=== PATIENT | female | born 1945 | race Caucasian/White ===

== ENCOUNTER 2019-02-25 18:45 | Emergency (ER) | payer MEDICARE, OTHER ==
[~2019-02-25] VITALS: Ht 165.1 cm; Wt 113.4 kg
[2019-02-25] MEDS ORDERED: MIDAZOLAM DRIP 50 mg/50mL 50 ML IV SCH (18:51)
[2019-02-25] MEDS ORDERED: SUCCINYLCHOLINE CHLORIDE 20 MG/ML 10ML VIAL IV ONE ×3 (18:52→19:00)
[2019-02-25] MEDS ORDERED: ETOMIDATE (2MG/ML) 20ML VIAL IV ONE ×3 (18:52→19:00)
[2019-02-25] MEDS ORDERED: fentaNYL Drip 2500mCg/250mlNS 250 ML IV SCH (18:53)
[2019-02-25] MEDS ORDERED: NOREPINEPHRINE 8 MG/250ML KIT 250 ML IV SCH (18:53)
[2019-02-25] MEDS ORDERED: MIDAZOLAM DRIP 50 mg/50mL 50 ML IV ONE (18:57)
[2019-02-25] MEDS ORDERED: fentaNYL Drip 2500mCg/250mlNS 250 ML IV ONE (18:57)
[2019-02-25] MEDS ORDERED: PROPOFOL 100 ML IV SCH ×2 (19:22→19:46)
[2019-02-25] MEDS ORDERED: PROPOFOL 100 ML IV ONE (19:22)
[2019-02-25 20:05] VITALS: BP 154/69
[2019-02-25 22:19] LABS: Urine Bacteria NONE SEEN /hpf (None Seen); Urine Blood 1+ /uL (Negative); Urine WBC 1 /hpf (0 - 5)
== END 2019-02-25 20:53 | disposition short-term general hospital (02) ==
LOC: EDBD 18:45 → ER 18:48
DX: I60.9 Nontraumatic subarachnoid hemorrhage, unspecified (principal); G93.41 Metabolic encephalopathy; R06.03 Acute respiratory distress
CPT/HCPCS: 31500; 36600; 70450; 71045; 81001; 82805; 82962; 87070; 87205; 99291; J0330; J2250; J2704; J7030; 94002

== ENCOUNTER 2019-04-10 12:07 | Emergency (ER) | payer OTHER ==
[~2019-04-10] VITALS: Ht 167.6 cm; Wt 93.9 kg
[2019-04-10 12:44] LABS: Basophils # (auto) 0.1 uL; Basophils % (auto) 1.6 % (0.0-2.0); Eosinophils # (auto) 0.3 uL; Eosinophils % (auto) 6.2 % (0.0-7.0); Hematocrit 36.7 % (36.0-46.0); Hemoglobin 11.9 g/dL (12.2-16.2); Lymphocytes # (auto) 0.7 uL; Lymphocytes % (auto) 14.9 % (10.0-50.0); Mean Corpuscular Hemoglobin 28.4 pg (28.0-32.0); Mean Corpuscular Hgb Conc. 32.5 g/dL (32.0-36.0); Mean Corpuscular Volume 87.4 fL (80.0-100.0); Monocytes # (auto) 0.3 uL; Monocytes % (auto) 6.9 % (0.0-12.0); Neutrophils # (auto) 3.3 uL; Neutrophils % (auto) 70.4 % (37.0-80.0); Platelet Count (auto) 126 10^3/uL (140-450); Red Blood Cells 4.21 10^6/uL (4.0-5.20); Red Cell Distribution Width 18.2 % (11.8-14.3); White Blood Cell 4.8 10^3/uL (4.4-10.8)
[2019-04-10 13:05] LABS: Alanine Aminotransferase 32 U/L (13-56); Albumin 3.2 g/dL (3.4-5.0); Anion Gap 6 (5-15); Aspartate Aminotransferase 50 U/L (15-37); BUN/Creatinine Ratio 19.1; Blood Urea Nitrogen 18 mg/dL (7-18); Calcium 8.9 mg/dL (8.5-10.1); Carbon Dioxide 27 mmol/L (21-32); Chloride 108 mmol/L (98-107); GFR African American 75 mL/min; GFR Non-African American 62 mL/min; Glucose 108 mg/dL (74-106); Potassium 3.9 mmol/L (3.5-5.1); Sodium 141 mmol/L (136-145)
[2019-04-10 13:10] LABS: Alkaline Phosphatase 168 U/L (45-117); Bilirubin, Total 0.5 mg/dL (0.2-1.0); Total Protein 7.4 g/dL (6.4-8.2)
[2019-04-10] MEDS ORDERED: cloNIDine HCL 0.1 MG TAB ONE (16:57)
[2019-04-10] MEDS ORDERED: cloNIDine HCL 0.1 MG TAB PO ONE (17:15)
[2019-04-10] MEDS ORDERED: NICARDIPINE 25MG/250ML BAG KIT 250 ML IV SCH (20:22)
[2019-04-10 21:13] VITALS: BP 144/56
[2019-04-10 21:15] LABS: INR 1.23 (0.9-1.15); Partial Thromboplastin Time 27.7 sec (23.64-32.05)
== END 2019-04-10 21:23 | disposition short-term general hospital (02) ==
LOC: ER 12:07
DX: S06.34 Traumatic hemorrhage of right cerebrum (principal); I10 Essential (primary) hypertension; D64.9 Anemia, unspecified; E78.5 Hyperlipidemia, unspecified; W19.XXXD Unspecified fall, subsequent encounter
CPT/HCPCS: 36415; 70450; 71045; 80053; 83735; 84484; 85025; 85610; 85730; 93005; 96365; 99291

== ENCOUNTER 2020-02-10 17:57 | Inpatient (IN) | payer MEDICARE, OTHER ==
[~2020-02-10] VITALS: Ht 160 cm; Wt 76.7 kg
[2020-02-10 19:38] LABS: Basophils # (auto) 0.1 10 ^3/uL (0-0.2); Eosinophils # (auto) 0.1 10 ^3/uL (0-0.8); Eosinophils % (auto) 0.6 % (0.0-7.0); Monocytes # (auto) 1.5 10 ^3/uL (0-1.3)
[2020-02-10 19:40] LABS: Basophils % (auto) 0.7 % (0.0-2.0); Hematocrit 32.8 % (36.0-46.0); Lymphocytes # (auto) 1.5 10 ^3/uL (0.4-5.4); Lymphocytes % (auto) 11.5 % (10.0-50.0); Mean Corpuscular Hemoglobin 34.5 pg (28.0-32.0); Mean Corpuscular Hgb Conc. 33.6 g/dL (32.0-36.0); Mean Corpuscular Volume 102.7 fL (80.0-100.0); Monocytes % (auto) 11.3 % (0.0-12.0); Neutrophils # (auto) 10.2 10 ^3/uL (1.6-8.6); Neutrophils % (auto) 75.9 % (37.0-80.0); Platelet Count (auto) 165 10^3/uL (140-450); Red Blood Cells 3.19 10^6/uL (4.0-5.20); Red Cell Distribution Width 13.2 % (11.8-14.3); White Blood Cell 13.4 10^3/uL (4.4-10.8)
[2020-02-10 19:55] LABS: INR 1.21 (0.9-1.15); Partial Thromboplastin Time 30.2 sec (23.0-31.2)
[2020-02-10 20:04] LABS: Albumin 3.4 g/dL (3.4-5.0); Calcium 9.6 mg/dL (8.5-10.1); Potassium 4.3 mmol/L (3.5-5.1)
[2020-02-10 20:07] LABS: BUN/Creatinine Ratio 30.6
[2020-02-10 20:10] LABS: Bilirubin, Total 0.6 mg/dL (0.2-1.0); Total Protein 7.4 g/dL (6.4-8.2)
[2020-02-11] MEDS ORDERED: ACETAMINOPHEN 325 MG TAB PO PRN (02:45)
[2020-02-11] MEDS ORDERED: SODIUM CHLORIDE 0.9% 500 ML IV ONE (02:45)
[2020-02-11] MEDS ORDERED: ONDANSETRON HCL 4 MG/2 ML VIAL IV PRN (02:45)
[2020-02-11] MEDS: SODIUM CHLORIDE 0.9% 1,000 ML IV SCH ×2 (03:18→20:16)
[2020-02-11 03:54] LABS: Urine Bacteria MANY /hpf (None Seen); Urine Blood 1+ /uL (Negative); Urine Specific Gravity 1.017 (1.001-1.035); Urine WBC 2123 /hpf (0 - 5); Urine WBC Clumps PRESENT /hpf (None Seen)
[2020-02-11 03:58] LABS: Alcohol, Urine < 3.0 mg/dL (0-10); Amphetamine Screen, Urine NEGATIVE (NEGATIVE); Barbiturate Scree,Urine NEGATIVE (NEGATIVE); Benzodiazephine Screen, Urine NEGATIVE (NEGATIVE); Cannabinoid Screen, Urine NEGATIVE (NEGATIVE); Cocaine Screen, Urine NEGATIVE (NEGATIVE); Opiate Scree,Urine NEGATIVE (NEGATIVE); Phencyclidine Screen, Urine NEGATIVE (NEGATIVE)
[2020-02-11 09:00] VITALS: BP 105/53
--- NOTE | 2020-02-11 09:00 | NUR ---
CAME ON [facility] FROM ER, RESPONDS TO PAINFUL STIMULI, NON VERBAL, ON SEIZURE PRECAUTION, NOT IN DISTRESS, CLEAR LS IN BILATERAL LS, RR=16 SAT=95%, HEART R=64, ABDOMEN SOFT WITH ACTIVE, SACRUM REDNESS AND LABIA NOTED, KEEP CLEAN AND DRY, SACRUM COVERED WITH DRY AND INTACT OPTIFOAM DRESSING, RADIAL AND PEDAL PULSES PALPABLE, CAP REFILL <3 SECONDS, VS T=98.2 RR=16 SAT=95% P=64 VL=933/57, RESTING ON BED, HEAD OF BED ELEVATED, BED ON LOW POSITION, RAILS UP X2, UNABLE TO OBTAIN INITIAL ASSESSMENT INFORMATION, WILL CONTINUE MONITORING. Addendum: 02/11/20 at 1233 by Servando Mcclendon RN CAME ON [facility] FROM , RESPONDS TO PAINFUL STIMULI, EYES ARE REACTIVE AND EQUAL ACCOMMODATING, COOPERATE ON TURNING POSITION, NON VERBAL, ON SEIZURE PRECAUTION, NOT IN DISTRESS, CLEAR LS IN BILATERAL LS, RR=16 SAT=95%, HEART R=64, ABDOMEN SOFT WITH ACTIVE, SACRUM REDNESS AND LABIA NOTED, KEEP CLEAN AND DRY, SACRUM COVERED WITH DRY AND INTACT OPTIFOAM DRESSING, RADIAL AND PEDAL PULSES PALPABLE, CAP REFILL <3 SECONDS, VS T=98.2 RR=16 SAT=95% P=64 AX=190/57, RESTING ON BED, HEAD OF BED ELEVATED, BED ON LOW POSITION, RAILS UP X2, UNABLE TO OBTAIN INITIAL ASSESSMENT INFORMATION, WILL CONTINUE MONITORING.
--- NOTE | 2020-02-11 09:30 | NUR ---
WOUND ASSESSMENT PICTURE WAS TAKEN.
--- NOTE | 2020-02-11 09:30 | NUR ---
MRSA SAMPLE SENT TO THE LAB ORDERED.
[2020-02-11] MEDS ORDERED: ENOXAPARIN SOD 30 MG/0.3 ML SYRINGE SC SCH (10:00)
[2020-02-11] MEDS: PANTOPRAZOLE 40 MG TAB PO SCH ×2 (10:00→10:36)
[2020-02-11] MEDS ORDERED: ENOXAPARIN SOD 40 MG/0.4 ML SYRINGE SC SCH (10:00)
[2020-02-11] MEDS: cefTRIAXone 1GM/50ML D5W 50 ML IV SCH (10:36)
[2020-02-11 13:00] VITALS: BP 132/55
--- NOTE | 2020-02-11 13:00 | NUR ---
NOT IN DISTRESS, ALERT AND ORIENT X2, COMMUNICATION IMPROVEMENT NOTED, TOLERATED 100ML OF COFFER, INCONTINENT, URINE OUT PUT X1 NOTED, RESTING ON BED, WILL CONTINUE MONITORING.
--- NOTE | 2020-02-11 16:56 | NUR ---
DAUGHTER CHAITANYA SNEED WAS CONTACTED ON [phone], PROVIDED INITIAL ADMISSION ASSESSMENT QUESTION ANSWERS, NO HOME MEDICATION REPORTED BY DAUGHTER, [facility] COVID 19 SAMPLE SENT TO THE LAB ORDERED, WILL CONTINUE MONITORING.
[2020-02-11 17:00] VITALS: BP 128/57
--- NOTE | 2020-02-11 19:15 | NUR ---
RESTING ON BED, NOT IN DISTRESS, REPORT WAS GIVEN TO THE OPERATOR COMMAND SUPPORT SYSTEMS RN.
[2020-02-11 22:00] VITALS: BP 147/60
[2020-02-12 05:00] VITALS: BP 140/66
[2020-02-12 05:50] LABS: Basophils # (auto) 0.1 10 ^3/uL (0-0.2); Basophils % (auto) 0.8 % (0.0-2.0); Eosinophils # (auto) 0 10 ^3/uL (0-0.8); Eosinophils % (auto) 0.3 % (0.0-7.0); Hematocrit 33.5 % (36.0-46.0); Hemoglobin 11.2 g/dL (12.2-16.2); Lymphocytes # (auto) 0.8 10 ^3/uL (0.4-5.4); Lymphocytes % (auto) 9.7 % (10.0-50.0); Mean Corpuscular Hemoglobin 34.1 pg (28.0-32.0); Mean Corpuscular Hgb Conc. 33.4 g/dL (32.0-36.0); Mean Corpuscular Volume 102.2 fL (80.0-100.0); Monocytes % (auto) 12.7 % (0.0-12.0); Neutrophils # (auto) 6.1 10 ^3/uL (1.6-8.6); Neutrophils % (auto) 76.5 % (37.0-80.0); Platelet Count (auto) 125 10^3/uL (140-450); Red Blood Cells 3.28 10^6/uL (4.0-5.20); Red Cell Distribution Width 13.3 % (11.8-14.3)
[2020-02-12 06:14] LABS: Potassium 4.1 mmol/L (3.5-5.1)
[2020-02-12 06:26] LABS: Albumin 3.1 g/dL (3.4-5.0); BUN/Creatinine Ratio 49.1; Bilirubin, Total 0.4 mg/dL (0.2-1.0); Calcium 8.8 mg/dL (8.5-10.1); Total Protein 6.7 g/dL (6.4-8.2)
--- NOTE | 2020-02-12 07:47 | NUR ---
Received patient alert and orient x1, responds to name, not in distress, on seizure precaution, wheezing sounds in bilateral lung lobes, RR=18 sat=96%, deep breathing and coughing encouraged, no s/s of sob and chest pain, abdomen soft with active BS, refused to eat, on aspiration precaution, incontinent, sacrum covered with dry and intact Optifoam dressing, radial and pedal pulses palpable, resting on bed, head of bed elevated, bed on low position, rails up x2, call light on reach, pending wound consult, will continue monitoring.
[2020-02-12 09:00] VITALS: BP 121/52
--- NOTE | 2020-02-12 09:00 | NUR ---
ALERT AND ORIENTED X2, TOLERATED PROVIDED BREAKFAST TRAY WELL, RESTING ON BED, NO S/S OF PAIN, WILL CONTINUE MONITORING.
[2020-02-12] MEDS ORDERED: D5W 5% 1,000 ML IV ONE (09:45)
--- NOTE | 2020-02-12 10:20 | NUR ---
WOUND CARE NOTE: Wound care in to see patient per wound care request regarding wounds/skin issue that are noted present on admission. Bedside nurse took photograph of patient's wound/ skin issue upon admission for reference. Patient is 74 years old female with admitting diagnosis of Acute Encephalopathy. Patient is resting in bed in Rm. 277A. Patient is awake, alert and answering question. Dr. Salazar at bedside talking to patient. Patient is in no stated pain at this time and she appears to be in no pain using Barnett Benson Faces Pain Scale. She nee assistance in turning and repositioning and her Pito score is 14. Skin assessment done with the assistance of patient's nurse, MARC Benson. Patient's sacral, buttocks, down to perineum and upper thighs has erythremic and macerated skin. There are multi small skin tears to lower buttocks that has minimal sanguinous drainage. Patient's medial sacrum noted with 2x0.5cm open partial thickness wound with dark red non-blanchable redness surrounding skin.Patient's sacral wound is consistent with Stage 2 pressure injury with moisture associated skin damage down to buttocks, thighs and perineum. Patient is incontinent and wet the bed. Nora care given, linen changed,applied Z Guard cream and covered medial sacrum wound with Opti foam gentle dressing as MD ordered. Patient's L heel also noted with blanchable redness. Patient tolerated well, repositioned for comfort facing her Rt side. MARC Benson at bedside. RECOMMENDATION: Nursing to continue with BID/PRN cleaning and application of Z Guard cream to sacral, buttocks and and thighs per MD order, Dietary consult, frequent turning and repositioning schedule as condition permits, redistribute pressure points with pillows, elevate heels on pillows, frequent nora care/check, keep clean and dry, continue monitoring by wound care while patient is hospitalized. Addendum: 02/12/20 at 1233 by Jessica Foley RN Amended: Links added.
[2020-02-12] MEDS: cefTRIAXone 1GM/50ML D5W 50 ML IV SCH (10:57)
[2020-02-12] MEDS: ENOXAPARIN SOD 40 MG/0.4 ML SYRINGE SC SCH (10:58)
[2020-02-12] MEDS: PANTOPRAZOLE 40 MG TAB PO SCH (10:58)
--- NOTE | 2020-02-12 12:30 | NUR ---
BUTTS CATH INSERTED ORDERED, CLOUDY YELLOW URINE OUT PUT NOTED, TOLERATED WELL, WILL CONTINUE MONITORING.
[2020-02-12 13:00] VITALS: BP 127/56
--- NOTE | 2020-02-12 16:00 | NUR ---
MRSA POSITIVE REPORTED, PIPE THREADER NOTIFIED, DR. PHOENIX WAS PAGED FOR FOLLOW UP AND TO BE NOTIFIED, WAITING FOR CALL BACK, WILL CONTINUE MONITORING.
[2020-02-12 17:00] VITALS: BP 136/66
--- NOTE | 2020-02-12 19:54 | NUR ---
NOT IN DISTRESS, DENIED PAIN, RESTING ON BED, REPORT WAS GIVEN TO THE WEAVING SUPERVISOR RN.
[2020-02-13 05:00] VITALS: BP 129/66
[2020-02-13 07:00] LABS: Calcium 8.5 mg/dL (8.5-10.1)
[2020-02-13 07:02] LABS: BUN/Creatinine Ratio 50.7; Potassium 3.5 mmol/L (3.5-5.1)
[2020-02-13 08:41] VITALS: BP 112/52
[2020-02-13] MEDS: cefTRIAXone 1GM/50ML D5W 50 ML IV SCH (09:13)
[2020-02-13] MEDS: PANTOPRAZOLE 40 MG TAB PO SCH (09:52)
[2020-02-13] MEDS: ENOXAPARIN SOD 40 MG/0.4 ML SYRINGE SC SCH (09:52)
--- NOTE | 2020-02-13 11:51 | NUR ---
Nutrition Assessment Est energy needs 5727-5919 kcal (25-30 kcal/kg IBW 52.3kg) Est protein needs 52-68g (1-1.3g/kg IBW 52.3kg) Will reassess prn. Addendum: 02/13/20 at [address] Amended: Links added.
[2020-02-13 13:00] VITALS: BP 120/59
[2020-02-13] MEDS: MUPIROCIN 2% OINT 15gm or 22gm EACHNOSTRI SCH ×2 (13:49→21:41)
[2020-02-13 16:28] VITALS: BP 124/58
--- NOTE | 2020-02-13 19:00 | NUR ---
Opening Shift Note Assumed care of patient, awake and alert. No S/S of distress/SOB or pain. Instructed on POC and to call for assist PRN, will continue to monitor for changes Q1hr and PRN.
[2020-02-13 22:00] VITALS: BP 108/59
[2020-02-14 05:00] VITALS: BP 115/58
[2020-02-14 09:07] VITALS: BP 130/64
[2020-02-14] MEDS: PANTOPRAZOLE 40 MG TAB PO SCH (10:16)
[2020-02-14] MEDS: cefTRIAXone 1GM/50ML D5W 50 ML IV SCH (10:16)
[2020-02-14] MEDS: ENOXAPARIN SOD 40 MG/0.4 ML SYRINGE SC SCH (10:16)
[2020-02-14] MEDS: MUPIROCIN 2% OINT 15gm or 22gm EACHNOSTRI SCH ×2 (10:16→21:34)
[2020-02-14 13:00] VITALS: BP 101/45
--- NOTE | 2020-02-14 14:56 | NUR ---
Received a call from microbiology, patient is positive for E. Coli ESBL in the urine. Isolation initiated. Dr. Salazar paged, waiting for call back.
--- NOTE | 2020-02-14 15:20 | NUR ---
Dr. Salazar returned call and orders received.
[2020-02-14] MEDS ORDERED: ERTAPENEM SOD INJ 1 GM in SODIUM CHL 0.9% 50 ML IV ONE (15:30)
--- NOTE | 2020-02-14 16:00 | NUR ---
Received a call from patient's daughter Litzy asking about the discharge planning and requested for patient to be discharged back to [facility]. Cait of long term care social worker made aware. Will continue care.
[2020-02-14 16:50] VITALS: BP 115/56
--- NOTE | 2020-02-14 18:43 | NUR ---
Midline Placement: Patient educated on need for midline placement. All risks and benefits explained and all questions and concerns addresses prior to procedure. 4Fr 20cm midline inserted via ritght brachial vein using Ultrasound. Sterile technique utilized. Blood return obtained from the single lumen and flushed easily with NS using proper technique. Midline secured with saline lock; biodisc and occlusive dressing applied. Primary RN notified. Midline lot #[id number]. Internal length 20cm External length 0cm
[2020-02-14 21:00] VITALS: BP 119/61
[2020-02-15 05:00] VITALS: BP 124/53
--- NOTE | 2020-02-15 08:10 | NUR ---
Opening Shift Note Assumed care of patient,comfortably resting in bed. Breath sounds even and unlabored.No S/S of distress/SOB or pain. Instructed on POC and to call for assist PRN, will continue to monitor for changes Q1hr and PRN.
[2020-02-15 09:00] VITALS: BP 141/63
[2020-02-15] MEDS: ENOXAPARIN SOD 40 MG/0.4 ML SYRINGE SC SCH (10:06)
[2020-02-15] MEDS: ERTAPENEM SOD INJ 1 GM in SODIUM CHL 0.9% 50 ML IV SCH (10:07)
[2020-02-15] MEDS: PANTOPRAZOLE 40 MG TAB PO SCH (10:07)
[2020-02-15] MEDS: MUPIROCIN 2% OINT 15gm or 22gm EACHNOSTRI SCH ×2 (10:07→22:25)
--- NOTE | 2020-02-15 12:18 | NUR ---
assessment re: ss consult Patient is a 74 year old female who is confused. Per patients daughter Litzy prior to admission patient resided at [facility] [employer] since Mar 2019. Per Litzy patient will return to [facility] on discharge. Patient uses a wheelchair at the facility. Patients PCP is dr Tierney at the facility. Per Litzy patient does not have an advanced directive, but she will be the one to make all decisions for patient. I informed Litzy I will continue to monitor and follow up as appropriate for any post discharge needs. Litzy verbalized understanding and agreed to discharge plan back to [facility]. Addendum: 02/15/20 at 1221 by Cait YI Amended: Links added.
[2020-02-15 13:00] VITALS: BP 139/65
--- NOTE | 2020-02-15 15:00 | NUR ---
BM Patient had a bowel movement, patient cleaned and bed linen changed with INSURANCE BILLER help. Patient noted to have reddened montgomery and minor skin tears on mid-left buttock. Area cleansed, patted dry , zguard applied and placed Opti-foam. Patient tolerated well. Will continue to monitor.
[2020-02-15 17:00] VITALS: BP 154/92
--- NOTE | 2020-02-15 18:49 | NUR ---
Closing note Patient is comfortably resting in bed. No s/s of distress noted/stated. Bed at lowest locked position and call light within reach. Will endorse care to NOC RN.
[2020-02-15 22:00] VITALS: BP 142/75
--- NOTE | 2020-02-16 04:55 | NUR ---
Patient linen changed. Patient cleaned and repositioned in bed. Had moderate sized bowel movement. Changed both dressings to sacral region.
[2020-02-16 05:00] VITALS: BP 163/76
--- NOTE | 2020-02-16 05:00 | NUR ---
Patient murray was initially noticed to be leaking. Once patient was cleaned murray catheter tubing was wiped clean. Tubing was advanced further and balloon was inflated. No further leaks noted. Will continue to monitor.
[2020-02-16 08:00] VITALS: BP 156/68
[2020-02-16 09:00] VITALS: BP 156/68
[2020-02-16] MEDS: ERTAPENEM SOD INJ 1 GM in SODIUM CHL 0.9% 50 ML IV SCH (09:47)
[2020-02-16] MEDS: MUPIROCIN 2% OINT 15gm or 22gm EACHNOSTRI SCH ×2 (09:47→22:00)
[2020-02-16] MEDS: ENOXAPARIN SOD 40 MG/0.4 ML SYRINGE SC SCH (09:47)
[2020-02-16] MEDS: PANTOPRAZOLE 40 MG TAB PO SCH (09:47)
[2020-02-16 13:00] VITALS: BP 157/73
[2020-02-16 13:46] LABS: Basophils # (auto) 0 10 ^3/uL (0-0.2); Basophils % (auto) 1.2 % (0.0-2.0); Eosinophils # (auto) 0.2 10 ^3/uL (0-0.8); Eosinophils % (auto) 5.4 % (0.0-7.0); Hematocrit 32.6 % (36.0-46.0); Hemoglobin 10.9 g/dL (12.2-16.2); Lymphocytes # (auto) 0.9 10 ^3/uL (0.4-5.4); Lymphocytes % (auto) 21.1 % (10.0-50.0); Mean Corpuscular Hemoglobin 33.8 pg (28.0-32.0); Mean Corpuscular Hgb Conc. 33.4 g/dL (32.0-36.0); Monocytes # (auto) 0.3 10 ^3/uL (0-1.3); Monocytes % (auto) 8.5 % (0.0-12.0); Neutrophils # (auto) 2.6 10 ^3/uL (1.6-8.6); Neutrophils % (auto) 63.8 % (37.0-80.0); Platelet Count (auto) 137 10^3/uL (140-450); Red Blood Cells 3.22 10^6/uL (4.0-5.20); White Blood Cell 4.1 10^3/uL (4.4-10.8)
--- NOTE | 2020-02-16 13:50 | NUR ---
Nutrition Followup Note Wt 78.4kg Pt was sleeping with no family at bedside at time of rounds. Pt with a regular diet with a fair appetite aeb pt with 66% po intake avg per Rn note. signed note for MVI/Vitamin C 500mg BID consider adding for improved wound healing. Est energy needs 4231-0470 kcal (25-30 kcal/kg IBW 52.3kg) Est protein needs 52-68g (1-1.3g/kg IBW 52.3kg) Will reassess prn. Labs: BUN 37H, GLUC 117H, Alb 3.1L BM: Pt with 1 BM 02/15 per RN note Skin: BS 14 mod risk, pt with mult wounds, full details in healthcare customer service note. PES: Obesity r/t caloric intake in excess of needs aeb pt with a BMI of 30.7 kg/m2 Comments 1) Continue to monitor po intake, labs, skin 2) refer pt to [facility] on DC 3) Continue current of plan of care Consider adding MVI and Vitamin C 500 mg BID for wound healing Expected Outcomes/Goals: 1) pt po intake >75% 2) pt to maintain wt while in hospital 3) f/u 3-5 days
[2020-02-16 14:13] LABS: BUN/Creatinine Ratio 22.6; Calcium 8.3 mg/dL (8.5-10.1); Potassium 3.9 mmol/L (3.5-5.1)
[2020-02-16] MEDS ORDERED: cloNIDine HCL 0.1 MG TAB PO PRN (15:15)
[2020-02-16 17:00] VITALS: BP 157/72
--- NOTE | 2020-02-16 17:56 | NUR ---
Frye catheter dc'd Order to discontinue Frye catheter. Frye dc'd with clean technique following deflation of balloon. Patient tolerated well with no complaints of pain. Will Continue care.
--- NOTE | 2020-02-16 20:05 | NUR ---
PATIENT COMPLETE BED LINEN CHANGE AND BED BATH.
[2020-02-16 22:00] VITALS: BP 153/68
[2020-02-17 05:00] VITALS: BP 153/75
[2020-02-17 06:50] LABS: Basophils # (auto) 0 10 ^3/uL (0-0.2); Basophils % (auto) 1.1 % (0.0-2.0); Eosinophils # (auto) 0.2 10 ^3/uL (0-0.8); Hematocrit 30.6 % (36.0-46.0); Hemoglobin 10.3 g/dL (12.2-16.2); Lymphocytes # (auto) 0.9 10 ^3/uL (0.4-5.4); Lymphocytes % (auto) 22.4 % (10.0-50.0); Mean Corpuscular Hgb Conc. 33.8 g/dL (32.0-36.0); Mean Corpuscular Volume 100.6 fL (80.0-100.0); Monocytes # (auto) 0.3 10 ^3/uL (0-1.3); Monocytes % (auto) 8.6 % (0.0-12.0); Neutrophils # (auto) 2.4 10 ^3/uL (1.6-8.6); Neutrophils % (auto) 61.9 % (37.0-80.0); Nucleated Red Blood Cells % 0.1 %; Platelet Count (auto) 142 10^3/uL (140-450); Red Blood Cells 3.04 10^6/uL (4.0-5.20); Red Cell Distribution Width 12.6 % (11.8-14.3); White Blood Cell 3.9 10^3/uL (4.4-10.8)
[2020-02-17 07:09] LABS: Calcium 8.4 mg/dL (8.5-10.1); Potassium 3.7 mmol/L (3.5-5.1)
[2020-02-17 07:13] LABS: BUN/Creatinine Ratio 26.1
[2020-02-17 08:30] VITALS: BP 156/78
[2020-02-17 08:31] VITALS: BP 156/78
[2020-02-17] MEDS: MUPIROCIN 2% OINT 15gm or 22gm EACHNOSTRI SCH (09:36)
[2020-02-17] MEDS: PANTOPRAZOLE 40 MG TAB PO SCH (09:37)
[2020-02-17] MEDS: ENOXAPARIN SOD 40 MG/0.4 ML SYRINGE SC SCH (09:37)
[2020-02-17] MEDS: ERTAPENEM SOD INJ 1 GM in SODIUM CHL 0.9% 50 ML IV SCH (09:37)
--- NOTE | 2020-02-17 09:40 | NUR ---
Scheduled medications given per order. Patient stable at this time.
--- NOTE | 2020-02-17 10:50 | NUR ---
Patient stable with Dr. Salazar at bedside.
--- NOTE | 2020-02-17 11:51 | NUR ---
Pt adamantly refused PT tx, RN informed. Addendum: 02/17/20 at 1153 by Al Ricks COFFEE BREAK ATTENDANT Amended: Links added.
[2020-02-17 12:00] VITALS: BP 157/75
--- NOTE | 2020-02-17 12:20 | NUR ---
Patient resting comfortably in bed with no distress noted. Patient stable.
--- NOTE | 2020-02-17 13:50 | NUR ---
Patient resting quietly in bed. Denies any pain at this time. Patient stable.
--- NOTE | 2020-02-17 14:38 | NUR ---
Patient resting in bed with eyes closed. Patient stable.
--- NOTE | 2020-02-17 16:23 | NUR ---
D/C Planning Per social service consult for SNF placement for IV abx. Per SW II patient came from [facility] and will return to facility. Faxed clinical information to facility. Per Mayte with [facility] patient will go to room [address] accepting MD Dr. Cardozo. Transportation has been arranged with [employer] transport via [place] at 7:45pm. MARC Abobtt has been informed.
[2020-02-17 17:00] VITALS: BP 152/77
[2020-02-17] MEDS ORDERED: levETIRAcetam 500 MG TAB PO ONE (17:15)
--- NOTE | 2020-02-17 19:10 | NUR ---
Called report to Lucille So RN at [facility] [phone]
--- NOTE | 2020-02-17 19:50 | NUR ---
Patient transferred via ambulance back to [facility].
== END 2020-02-17 19:45 | DRG 871 ==
LOC: EDBD 17:57 → ER 17:57 → OVERFLOW 17:58 → WEST WING 02-11 08:44
PROVIDERS: ADMIT Nurse Practitioner; ATTEND Internal Medicine
DX: A41.9 Sepsis, unspecified organism (principal); N17.0 Acute kidney failure with tubular necrosis; G93.41 Metabolic encephalopathy; N39.0 Urinary tract infection, site not specified; Z20.828 Contact with and (suspected) exposure to other viral communicable diseases; F10.129 Alcohol abuse with intoxication, unspecified; Y90.5 Blood alcohol level of 100-119 mg/100 ml; F03.90 Unspecified dementia, unspecified severity, without behavioral disturbance, psychotic disturbance, mood disturbance, and anxiety; B96.20 Unspecified Escherichia coli [E. coli] as the cause of diseases classified elsewhere; L89.302 Pressure ulcer of unspecified buttock, stage 2; R56.9 Unspecified convulsions; D64.9 Anemia, unspecified; E03.9 Hypothyroidism, unspecified; E78.5 Hyperlipidemia, unspecified; I10 Essential (primary) hypertension; I70.0 Atherosclerosis of aorta; K74.60 Unspecified cirrhosis of liver; Z79.899 Other long term (current) drug therapy; Z90.49 Acquired absence of other specified parts of digestive tract
CPT/HCPCS: 36415; 70450; 71045; 80048; 80053; 80307; 80320; 81001; 83605; 85025; 85610; 85730; 87040; 87081; 87086; 87088; 87186; 97110; 97163; 97530; G0378; J0696; J1335